=== PATIENT | male | born 2000 | race Caucasian/White ===

== ENCOUNTER 2022-08-19 11:23 | Emergency (ER) | payer MEDICAID, SELFPAY ==
[2022-08-19 11:27] VITALS: BP 159/95; PULSE 74; RESP 18; TEMP 36.7; O2SAT 99
--- NOTE | 2022-08-19 11:43 | W.ED.GENADLT ---
HPI - General Adult General: Chief complaint: General Medical Stated complaint: states high bloodpressure Time Seen by Provider: 08/19/22 11:33 Source: patient and family () Mode of arrival: ambulatory Limitations: no limitations History of Present Illness: Patient is a 22-year-old male who presents to ED today with a request to lower his blood pressure. 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 He states his blood pressure during their examination was 160s over something . Patient states he then went to urgent care and asked them to give him medications to lower his blood pressure so he could return to the [employer] office and pass his exam. They stated that they had a policy that they do not start antihypertensive medications. Patient then stated he was going to come to the ED for evaluation. Patient states he never checks his blood pressure at home so he does not know what a normal blood pressure is for him. He states the only PMH he is aware of is asthma in which he treats with albuterol. Associated symptoms: Reports no associated symptoms; Deny chest pain, dyspnea, headache(s), nausea, palpitations, syncope or vomiting Treatments prior to arrival: none Review of Systems Eyes: Denies: change in vision, blurry vision, floaters or seeing flashes Card: Reports: dyspnea on exertion (secondary to asthma); Denies: chest pain, palpitations, swelling of feet/ankles, lightheadedness, syncope, pre-syncope or orthopnea Resp: Denies: dyspnea GI: Denies: nausea or vomiting Neuro: Denies: headache(s) or dizziness Physical Exam Const: COMMON NORMALS: no acute distress, patient oriented x3, no limitations and alert GENERAL APPEARANCE: cooperative NUTRITIONAL APPEARANCE: obese morbidly obese (BMI is over 50) ORIENTATION/CONSCIOUSNESS: Yes awake, Yes oriented to person, Yes oriented to place and Yes oriented to time HENMT: COMMON NORMALS: normocephalic and atraumatic HEAD & SCALP: normal to inspection, normocephalic and atraumatic Resp: COMMON NORMALS: normal respiratory effort and clear to auscultation bilaterally AUSCULTATION: clear to auscultation bilaterally Cardio: COMMON NORMALS: regular rate and regular rhythm RATE: regular rate RHYTHM: regular rhythm Extremity: COMMON NORMALS: no clubbing, cyanosis or edema and no pedal edema Neuro: GUERITA COMA SCALE: document GCS findings Guer[place] coma scale eye opening: Spontaneous [place] coma scale verbal response: Orientated [place] coma scale motor response: Obey commands [place] coma scale total score: 15 COMMON NORMALS: patient oriented x3, CN's II-XII intact bilaterally, moves all extremities, no focal motor deficits, no sensory deficits noted and gait normal SENSORIUM/ORIENTATION: Yes alert, Yes oriented to person, Yes oriented to place and Yes oriented to time Skin: COMMON NORMALS: no rashes or lesions noted GENERAL SKIN EXAM: no rashes or lesions noted Course Vital Signs: Vital signs: Vital Signs Temperature 98.0 F 08/19/22 11:27 Pulse Rate 74 08/19/22 11:27 Respiratory Rate 18 08/19/22 11:27 Blood Pressure 137/85 08/19/22 12:36 Pulse Oximetry 99 08/19/22 11:27 Oxygen Delivery Me thod 08/19/22 11:27 MDM - General Adult Medical Decision Making I told patient that I am not comfortable chasing an arbitrary number that DOT requires especially since patient has no idea what a normal blood pressure for him is nor does he ever check it at home. I told him I would place him on Lisinopril 10mg daily at home and would give him one here and see how he responds but that I am not giving him IM/IV meds just to get his BP below a certain number. Fortunately after Lisinopril blood pressure was trending down and he would go. I will give him the prescription and recommend BP log-he does state he has PCP follow up in about 2 weeks and they can adjust meds as needed based on log. Discharge Plan Discharge Patient Disposition: Home Clinical Impression: Hypertension Condition: Stable Prescriptions: New lisinopril 10 mg tablet 10 mg PO DAILY Qty: 30 0RF No Action albuterol sulfate [Ventolin HFA] 90 mcg/actuation HFA aerosol inhaler 2 puff inhalation QID Qty: 6.7 0RF Discharge Orders: Discharge ED (Routine); Ordered 08/19/22 Ordered By: Tamar Vallejo Patient Instructions: Hypertension (ED) Activity Restrictions/Additional Instructions: As we discussed you need to keep a blood pressure log twice daily so that you can follow-up with your primary care provider and they may make adjustments to your blood pressure medications based on response. Coding Level of Care Code ED Doctor Of Dental Surgery for Paulo Mancini
[2022-08-19] MEDS: lisinopril 10 mg Tablet PO (12:04)
[2022-08-19 12:36] VITALS: BP 137/85
== END 2022-08-19 12:39 | disposition home or self-care (01) ==
PROVIDERS: Emergency Provider Physician Assistant
DX: I10 Essential (primary) hypertension (principal)
CPT/HCPCS: 99283